=== PATIENT | male | born 1970 | race Caucasian/White ===

== ENCOUNTER 2018-06-28 22:53 | Inpatient (IN) | payer OTHER ==
[~2018-06-28] VITALS: Ht 172.7 cm; Wt 148.3 kg
[2018-06-29] VITALS (11 sets, daily range): BP systolic 111–125; BP diastolic 56–74; PULSE 82–100; RESP 18–20; Ht 172.7 cm; Wt 148.3 kg
[2018-06-29] MEDS ORDERED: LOSA100T15 PO (02:28)
[2018-06-29] MEDS ORDERED: MTF1000T PO (02:28)
[2018-06-29] MEDS ORDERED: HYDR25TA6 PO (02:28)
[2018-06-29] MEDS ORDERED: ATOR-2 PO (02:29)
[2018-06-29] MEDS ORDERED: SOD CHLORIDE 0.9% 1,000 ML IV SCH (06:30)
[2018-06-29] MEDS ORDERED: GUAIFENESIN/CODEINE 5ML CUP PO PRN (06:30)
[2018-06-29] MEDS ORDERED: ACETAMINOPHEN 325 MG TAB PO PRN (06:30)
[2018-06-29] MEDS: CEFTRIAXONE 1 GM/50 ML (PMX) 50 ML IVPB SCH (06:52)
[2018-06-29] MEDS ORDERED: GLUCOSE GEL 15 GRAM TUBE BUCCAL PRN (07:00)
[2018-06-29] MEDS ORDERED: DEXTROSE 50% 50 ML SYRINGE IV PRN ×2 (07:00)
[2018-06-29] MEDS ORDERED: GLUCAGON 1 MG INJ IM PRN (07:00)
[2018-06-29] MEDS ORDERED: GLUCOSE GEL 15 GRAM TUBE PO PRN ×2 (07:00)
[2018-06-29] MEDS: ALBUTEROL/IPRATROPIUM (NEB) 3 ML AMP HHN SCH ×3 (08:00→19:19)
[2018-06-29] MEDS: INSULIN ASPART [NOVOLOG] 3 ML PEN SC SCH ×4 (08:00→20:11)
[2018-06-29] MEDS: AZITHROMYCIN 500MG/NS (PMX) 250 ML IVPB SCH (08:11)
[2018-06-29] MEDS ORDERED: POTASSIUM CHLORIDE (SR) 20 MEQ TAB PO STA ×2 (12:51→13:55)
--- NOTE | 2018-06-29 13:54 | QN ---
Documentation Comment pt seen and examined HEATHER HERNANDEZ MD June 29, 2018 13:54
--- NOTE | 2018-06-29 15:44 | HP ---
DATE OF ADMISSION: 06/29/2018 REASON FOR ADMISSION: Fever, sore throat, headache. HISTORY OF PRESENT ILLNESS: This is a 47-year-old male with a past medical history of diabetes, hype rtension, hyperlipidemia, who presented to [facility] with 8 days of fever, cough, sore throat a nd headache. According to the patient, he has had intermittently fevers for the past few days. He w ent to [facility] twice and he was discharged from the Emergency Department. The patient's brot her had strep pharyngitis and flu and he was in contact with him. About 8 days ago he started having some intermittent fevers, cough, sore throat and a headache. The patient was also having some diarrh ea, 4 to 5 bowel movements per day and went again to [facility] for further evaluation. The pat ieaan has been having poor appetite, has not been able to eat. On arrival there, the patient had a fe debra of 101, pulse was 127. Initial blood pressure 140/90. White count of 10.1, hemoglobin 16.2. So dium 128, potassium 3.5, chloride 88, bicarbonate 23, BUN of 17, creatinine 1.84. Patient had AST 44 , ALT 38. Lactate was 1.9, lipase was 30. Patient had a chest x-ray that showed pneumonia and was g iven Rocephin, dexamethasone, and ketorolac and was transferred due to insurance reasons. PAST MEDICAL HISTORY: 1. Diabetes. 2. Hypertension. 3. Hyperlipidemia. 4. Obesity. ALLERGIES: NONE. PAST SURGICAL HISTORY: Cholecystectomy. HOME MEDICATIONS: 1. Atorvastatin 80. 2. Losartan 100. 3. Hydrochlorothiazide 25. 4. Metformin 1000 b.i.d. SOCIAL HISTORY: Denies any history of smoking, alcohol or any drug use. Lives with family. FAMILY HISTORY: Noncontributory. REVIEW OF SYSTEMS: The patient complained of generalized body aches, cough, sore throat, headache an d coughing. Also, patient was having some diarrhea for the past few days, which has been improving. PHYSICAL EXAMINATION: VITAL SIGNS: Currently initial temperature was 99.5, heart rate of 97, respirations 19, blood pressu re 112/27, saturating 94% on 2 liters. GENERAL: The patient is awake, alert, oriented, does not appear to be in any acute distress. HEENT: Pupils equal, round, reactive to light. NECK: Supple, no JVD. HEART: Regular rate and rhythm. LUNGS: Few rhonchi scattered bilaterally. ABDOMEN: Morbidly obese, positive bowel sounds. EXTREMITIES: No edema. NEUROLOGIC: Nonfocal. LABORATORY DATA: Potassium of 3.3, BUN of 25, creatinine 1.20 from 1.84, calcium 8.2. White count 8 .5, hemoglobin 13.7, platelet count 242. ASSESSMENT AND PLAN: This is a 47-year-old male presenting with: 1. Sepsis, likely secondary to pneumonia. 2. Dehydration. 3. Cough, myalgia, headaches, rule out flu. 4. Hyponatremia, resolved. 5. Acute kidney injury, likely secondary to sepsis, resolved. 6. Diabetes. 7. Hypertension. 8. Hyperlipidemia. PLAN: At this period of time, the patient is admitted to tele. The patient is getting nebs around t he clock. We will continue the patient on Rocephin and azithromycin. We will also send for flu. We will also send for hepatitis studies. We will also send for sputum cultures. Rest of the treatment will depend on the patient's hospitalization course. Dictated By: HEATHER CANALES/CESAR Conf#: [id number] DID#: [id number] CC: AUDELIA BAILEY MD;*End*
[2018-06-29] MEDS: ATORVASTATIN 80 MG TAB PO SCH (20:11)
[2018-06-30] VITALS (11 sets, daily range): BP systolic 115–131; BP diastolic 64–77; PULSE 73–100; RESP 17–20
[2018-06-30] MEDS: ALBUTEROL/IPRATROPIUM (NEB) 3 ML AMP HHN SCH ×4 (01:43→20:58)
[2018-06-30] MEDS: CEFTRIAXONE 1 GM/50 ML (PMX) 50 ML IVPB SCH (06:05)
[2018-06-30] MEDS: AZITHROMYCIN 500MG/NS (PMX) 250 ML IVPB SCH (06:05)
[2018-06-30] MEDS: INSULIN ASPART [NOVOLOG] 3 ML PEN SC SCH ×4 (08:00→21:00)
[2018-06-30] MEDS: FAMOTIDINE 20 MG INJ IV SCH ×2 (08:57→21:09)
[2018-06-30] MEDS ORDERED: POTASSIUM CHLORIDE (SR) 20 MEQ TAB PO STA (09:54)
--- NOTE | 2018-06-30 11:39 | PN ---
Date/Time of Note Date/Time of Note DATE: 06/30/18 TIME: 11:36 Assessment/Plan VTE Prophylaxis Risk score (from [facility])>0 risk: 4 SCD applied (from [facility] [place]): No SCD contraindicated: low risk/ambulating Pharmacological prophylaxis: NA/contraindicated Pharm contraindication: low risk/ambulating Lines/Catheters [facility] Saline Lock Urinary Cath still in place: No Assessment/Plan Assessment/Plan This is a 47-year-old male presenting with: 1. Sepsis, likely secondary to rt pneumonia. 2. Dehydration. 3. Cough, myalgia, headaches, rule out flu. 4. Hyponatremia, resolved. 5. Acute kidney injury, likely secondary to sepsis, resolved. 6. Diabetes. 7. Hypertension. 8. Hyperlipidemia. plan - clinically improved chest x-ray shows right-sided pneumonia - resp culture pen, influenza a and B are negative - c diff neg -PT with nebs/Rocephin/azithromycin -titrate off oxygen - ambulate Result Diagram: 06/29/18 0749 06/30/18 0548 Results 24hrs Laboratory Tests Test 06/29/18 12:10 06/29/18 17:16 06/29/18 20:09 06/30/18 05:48 Bedside Glucose 141 134 151 Sodium Level 140 Potassium Level 3.1 L Chloride Level 102 Carbon Dioxide Level 27 Anion Gap 11 Blood Urea Nitrogen 20 Creatinine 0.96 Est Glomerular > 60 Filtrat Rate mL/min Glucose Level 131 Calcium Level 8.6 Test 06/30/18 07:41 Bedside Glucose 117 Subjective 24 Hr Interval Summary Free Text/Dictation States that he feels 80% better Diarrhea has resolved Exam/Review of Systems Exam Vitals Vital Signs Date Temp Pulse Resp B/P (MAP) Pulse Ox O2 O2 Flow FiO2 Time Delivery Rate 06/30/18 2.0 08:19 06/30/18 92 20 94 Nasal 08:17 Cannula 06/30/18 98.3 117/64 07:14 (81) Intake and Output 06/29/18 06/29/18 06/30/18 1515:00 23:00 07:00 IntakeIntake Total 510 ml 1400 ml 1000 ml BalanceBalance 510 ml 1400 ml 1000 ml Exam ENERAL: The patient is awake, alert, oriented, does not appear to be in any acute distress. HEENT: Pupils equal, round, reactive to light. NECK: Supple, no JVD. HEART: Regular rate and rhythm. LUNGS: coarse Breath sounds on the right base ABDOMEN: Morbidly obese, positive bowel sounds. EXTREMITIES: No edema. NEUROLOGIC: Nonfocal. Results Results 24hrs Laboratory Tests Test 06/29/18 12:10 06/29/18 17:16 06/29/18 20:09 06/30/18 05:48 Bedside Glucose 141 134 151 Sodium Level 140 Potassium Level 3.1 L Chloride Level 102 Carbon Dioxide Level 27 Anion Gap 11 Blood Urea Nitrogen 20 Creatinine 0.96 Est Glomerular > 60 Filtrat Rate mL/min Glucose Level 131 Calcium Level 8.6 Test 06/30/18 07:41 Bedside Glucose 117 Medications Medication Current Medications Famotidine (Pepcid Iv) 20 mg BID IV Last administered on 06/30/18at 08:57; Admin Dose 20 MG; Start 06/30/18 at 09:00 Albuterol/ Ipratropium (Duoneb) 3 ml Q6H RESP THERAPY HHN Last administered on 06/30/18at 08:16; Admin Dose 3 ML; Start 06/29/18 at 08:00 Acetaminophen (Tylenol Tab) 650 mg Q6H PRN PO MILD PAIN(1-3)OR ELEVATED TEMP; Start 06/29/18 at 06:30 Guaifenesin/ Codeine Phosphate (Robitussin Ac Liquid Cup) 10 ml Q4H PRN PO COUGH; Start 06/29/18 at 06:30 Ceftriaxone Sodium 50 ml @ 100 mls/hr Q24H IVPB Last administered on 06/30/18at 06:05; Admin Dose 100 MLS/HR; Start 06/29/18 at 06:30 Insulin Aspart (Novolog Insulin Pen) NOVOLOG *MILD* ALGORITHM WITH MEALS BEDTIME SC Last administered on 06/29/18at 12:13; Admin Dose 1 UNIT; Start 06/29/18 at 08:00 Miscellaneous Information 1 ea NOTE XX ; Start 06/29/18 at 07:00 Glucose (Glutose) 15 gm Q15M PRN PO DECREASED GLUCOSE; Start 06/29/18 at 07:00 Glucose (Glutose) 22.5 gm Q15M PRN PO DECREASED GLUCOSE; Start 06/29/18 at 07:00 Dextrose (D50w Syringe) 25 ml Q15M PRN IV DECREASED GLUCOSE; Start 06/29/18 at 07:00 Dextrose (D50w Syringe) 50 ml Q15M PRN IV DECREASED GLUCOSE; Start 06/29/18 at 07:00 Glucagon (Glucagen) 1 mg Q15M PRN IM DECREASED GLUCOSE; Start 06/29/18 at 07:00 Glucose (Glutose) 15 gm Q15M PRN BUCCAL DECREASED GLUCOSE; Start 06/29/18 at 07:00 Azithromycin 250 ml @ 250 mls/hr Q24H IVPB Last administered on 06/30/18at 06:05; Admin Dose 250 MLS/HR; Start 06/29/18 at 07:00 Atorvastatin Calcium (Lipitor) 80 mg QHS PO Last administered on 06/29/18at 20:11; Admin Dose 80 MG; Start 06/29/18 at 21:00 HEATHER HERNANDEZ MD June 30, 2018 11:39
[2018-06-30] MEDS ORDERED: ENOXAPARIN 40 MG/0.4 ML SYG SC ONE (12:00)
[2018-06-30] MEDS: ATORVASTATIN 80 MG TAB PO SCH (21:07)
[2018-07-01] MEDS: ALBUTEROL/IPRATROPIUM (NEB) 3 ML AMP HHN SCH ×4 (01:15→21:12)
[2018-07-01 02:08] VITALS: BP 122/66; PULSE 89; RESP 18
[2018-07-01] MEDS: CEFTRIAXONE 1 GM/50 ML (PMX) 50 ML IVPB SCH (06:07)
[2018-07-01] MEDS: AZITHROMYCIN 500MG/NS (PMX) 250 ML IVPB SCH (06:30)
[2018-07-01] MEDS: INSULIN ASPART [NOVOLOG] 3 ML PEN SC SCH ×4 (08:00→20:50)
[2018-07-01 08:09] VITALS: BP 129/81; PULSE 85; RESP 18
[2018-07-01] MEDS: FAMOTIDINE 20 MG INJ IV SCH (08:27)
[2018-07-01] MEDS ORDERED: POTASSIUM CHLORIDE (SR) 20 MEQ TAB PO STA (10:03)
--- NOTE | 2018-07-01 14:24 | PN ---
Date/Time of Note Date/Time of Note DATE: 07/01/18 TIME: 14:24 Assessment/Plan VTE Prophylaxis Risk score (from [facility] [place])>0 risk: 2 SCD applied (from [facility] [place]): Yes Pharmacological prophylaxis: NA/contraindicated Pharm contraindication: low risk/ambulating Lines/Catheters [facility] C[facility] Type (from [facility] Saline Lock Urinary Cath still in place: No Assessment/Plan Assessment/Plan his is a 47-year-old male presenting with: 1. Sepsis, likely secondary to rt pneumonia.likley hypoxia 2. Dehydration. 3. Cough, myalgia, headaches, rule out flu. 4. Hyponatremia, resolved. 5. Acute kidney injury, likely secondary to sepsis, resolved. 6. Diabetes. 7. Hypertension. 8. Hyperlipidemia. plan - clinically improved chest x-ray shows right-sided pneumonia - resp culture pen, influenza a and B are negative - cw iv abx rocephin/azithromycin - will get ABG - c diff neg -PT with nebs/Rocephin/azithromycin Result Diagram: 07/01/186 07/01/18 0446 Results 24hrs Laboratory Tests Test 06/30/18 18:03 06/30/18 21:06 07/01/18 04:46 07/01/18 08:26 Bedside Glucose 108 121 100 White Blood Count 8.2 Red Blood Count 4.87 Hemoglobin 13.6 L Hematocrit 41.5 L Mean Corpuscular 85.2 Volume Mean Corpuscular 27.9 L Hemoglobin Mean Corpuscular 32.8 Hemoglobin Concent Red Cell 13.9 Distribution Width Platelet Count 341 # Mean Platelet Volume 10.3 Immature 0.600 H Granulocytes % Neutrophils % Segmented 46 Neutrophils % (Manual) Band Neutrophils % 2 (Manual) Lymphocytes % Lymphocytes % 42 (Manual) Reactive Lymphocytes 3 H % (Manual) Monocytes % Monocytes % (Manual) 7 Eosinophils % Basophils % Nucleated Red Blood 0.0 Cells % Immature 0.050 H Granulocytes # Neutrophils # Neutrophils # 3.8 (Manual) Band Neutrophils # 0.1 Lymphocytes (Manual) 3.4 H Lymphocytes # Reactive Lymphocytes 0.2 H # Monocytes # Monocytes # (Manual) 0.5 Eosinophils # Basophils # Nucleated Red Blood Cells # Platelet Estimate NORMAL Giant Platelets 1 H Poikilocytosis 1+ Anisocytosis 1+ Microcytosis 1+ Sodium Level 145 H Potassium Level 3.0 L Chloride Level 107 Carbon Dioxide Level 28 Anion Gap 10 Blood Urea Nitrogen 16 Creatinine 0.86 Est Glomerular > 60 Filtrat Rate mL/min Glucose Level 101 Calcium Level 9.0 Phosphorus Level 5.6 H Magnesium Level 1.9 Test 07/01/18 12:48 Bedside Glucose 88 Subjective 24 Hr Interval Summary Free Text/Dictation feels a lot better Exam/Review of Systems Exam Vitals Vital Signs Date Temp Pulse Resp B/P (MAP) Pulse Ox O2 O2 Flow FiO2 Time Delivery Rate 07/01/18 77 18 95 21 13:45 07/01/18 98.3 129/81 08:09 (97) 07/01/18 2.0 01:16 07/01/18 Nasal 01:16 Cannula Intake and Output 06/30/18 06/30/18 07/01/18 1515:00 23:00 07:00 IntakeIntake Total 360 ml 480 ml 50 ml BalanceBalance 360 ml 480 ml 50 ml Exam ENERAL: The patient is awake, alert, oriented, does not appear to be in any acute distress. HEENT: Pupils equal, round, reactive to light. NECK: Supple, no JVD. HEART: Regular rate and rhythm. LUNGS: coarse Breath sounds on the right base ABDOMEN: Morbidly obese, positive bowel sounds. EXTREMITIES: No edema. NEUROLOGIC: Nonfocal. Results Results 24hrs Laboratory Tests Test 06/30/18 18:03 06/30/18 21:06 07/01/18 04:46 07/01/18 08:26 Bedside Glucose 108 121 100 White Blood Count 8.2 Red Blood Count 4.87 Hemoglobin 13.6 L Hematocrit 41.5 L Mean Corpuscular 85.2 Volume Mean Corpuscular 27.9 L Hemoglobin Mean Corpuscular 32.8 Hemoglobin Concent Red Cell 13.9 Distribution Width Platelet Count 341 # Mean Platelet Volume 10.3 Immature 0.600 H Granulocytes % Neutrophils % Segmented 46 Neutrophils % (Manual) Band Neutrophils % 2 (Manual) Lymphocytes % Lymphocytes % 42 (Manual) Reactive Lymphocytes 3 H % (Manual) Monocytes % Monocytes % (Manual) 7 Eosinophils % Basophils % Nucleated Red Blood 0.0 Cells % Immature 0.050 H Granulocytes # Neutrophils # Neutrophils # 3.8 (Manual) Band Neutrophils # 0.1 Lymphocytes (Manual) 3.4 H Lymphocytes # Reactive Lymphocytes 0.2 H # Monocytes # Monocytes # (Manual) 0.5 Eosinophils # Basophils # Nucleated Red Blood Cells # Platelet Estimate NORMAL Giant Platelets 1 H Poikilocytosis 1+ Anisocytosis 1+ Microcytosis 1+ Sodium Level 145 H Potassium Level 3.0 L Chloride Level 107 Carbon Dioxide Level 28 Anion Gap 10 Blood Urea Nitrogen 16 Creatinine 0.86 Est Glomerular > 60 Filtrat Rate mL/min Glucose Level 101 Calcium Level 9.0 Phosphorus Level 5.6 H Magnesium Level 1.9 Test 07/01/18 12:48 Bedside Glucose 88 Medications Medication Current Medications Albuterol/ Ipratropium (Duoneb) 3 ml Q6H RESP THERAPY HHN Last administered on 07/01/18at 13:44; Admin Dose 3 ML; Start 06/29/18 at 08:00 Acetaminophen (Tylenol Tab) 650 mg Q6H PRN PO MILD PAIN(1-3)OR ELEVATED TEMP; Start 06/29/18 at 06:30 Guaifenesin/ Codeine Phosphate (Robitussin Ac Liquid Cup) 10 ml Q4H PRN PO COUGH; Start 06/29/18 at 06:30 Ceftriaxone Sodium 50 ml @ 100 mls/hr Q24H IVPB Last administered on 07/01/18at 06:07; Admin Dose 100 MLS/HR; Start 06/29/18 at 06:30 Insulin Aspart (Novolog Insulin Pen) NOVOLOG *MILD* ALGORITHM WITH MEALS BEDTIME SC Last administered on 06/29/18at 12:13; Admin Dose 1 UNIT; Start 06/29/18 at 08:00 Miscellaneous Information 1 ea NOTE XX ; Start 06/29/18 at 07:00 Glucose (Glutose) 15 gm Q15M PRN PO DECREASED GLUCOSE; Start 06/29/18 at 07:00 Glucose (Glutose) 22.5 gm Q15M PRN PO DECREASED GLUCOSE; Start 06/29/18 at 07:00 Dextrose (D50w Syringe) 25 ml Q15M PRN IV DECREASED GLUCOSE; Start 06/29/18 at 07:00 Dextrose (D50w Syringe) 50 ml Q15M PRN IV DECREASED GLUCOSE; Start 06/29/18 at 07:00 Glucagon (Glucagen) 1 mg Q15M PRN IM DECREASED GLUCOSE; Start 06/29/18 at 07:00 Glucose (Glutose) 15 gm Q15M PRN BUCCAL DECREASED GLUCOSE; Start 06/29/18 at 07:00 Azithromycin 250 ml @ 250 mls/hr Q24H IVPB Last administered on 07/01/18at 06:30; Admin Dose 250 MLS/HR; Start 06/29/18 at 07:00 Atorvastatin Calcium (Lipitor) 80 mg QHS PO Last administered on 06/30/18at 21:07; Admin Dose 80 MG; Start 06/29/18 at 21:00 Famotidine (Pepcid) 20 mg BID PO ; Start 07/01/18 at 21:00 HEATHER HERNANDEZ MD July 01, 2018 14:24
--- NOTE | 2018-07-01 14:26 | PDOCDIS ---
Discharge Instructions DIAGNOSIS Discharge Diagnosis pneumonia CONDITION [id number] Patient Condition: [id number] Fair HOME CARE INSTRUCTIONS: [id number] Diet Instructions: [id number] Low Fat /Cholesterol [id number] Special Diet: [id number] carb controlled ACTIVITY: [id number] Activity Restrictions: [id number] Slowly Increase Activity Rest between Activity Avoid heavy lifting FOLLOW UP/APPOINTMENTS Follow-up Plan fu PCP in 1-2 weeks avoid sick contacts return to ER if has cp/sob/fevers HEATHER HERNANDEZ MD July 01, 2018 14:26
[2018-07-01] MEDS ORDERED: ALBU8.5H8 INH (14:29)
[2018-07-01] MEDS ORDERED: LEVO750T25 PO (14:29)
[2018-07-01] MEDS ORDERED: CODE5LIQ2 PO (14:29)
[2018-07-01 14:50] VITALS: BP 125/75; PULSE 93; RESP 17
--- NOTE | 2018-07-01 17:27 | QN ---
Documentation Comment As Physician Advisor I have reviewed the chart and have determined that as of today, this patient continues to receive medically necessary care required for the diagnosis and treatment of illness or injury. There has been no unreasonable delay in the rendering of medically necessary services, and medically necessary care has required a length of stay greater than two midnights. Additional information gained during the stay now suggests this patient should have been classified as an inpatient at the time of admission, and the admission status has been changed the status to inpatient to reflect that medical judgment. Specific information with regard to this patient that contributed to this decision includes: Sepsis STAR IV antibiotics O2 requirement Please call me at [phone] with questions. JOY KRUEGER MD July 01, 2018 17:27
[2018-07-01 19:52] VITALS: BP 140/87; PULSE 93; RESP 18
[2018-07-01] MEDS: ATORVASTATIN 80 MG TAB PO SCH (20:50)
[2018-07-01] MEDS: FAMOTIDINE 20 MG TAB PO SCH (20:51)
[2018-07-02] MEDS: ALBUTEROL/IPRATROPIUM (NEB) 3 ML AMP HHN SCH ×3 (01:29→14:11)
[2018-07-02 02:38] VITALS: BP 121/62; PULSE 88; RESP 18
[2018-07-02] MEDS: CEFTRIAXONE 1 GM/50 ML (PMX) 50 ML IVPB SCH (06:02)
[2018-07-02] MEDS: AZITHROMYCIN 500MG/NS (PMX) 250 ML IVPB SCH (06:36)
[2018-07-02 07:35] VITALS: BP 122/83; PULSE 79; RESP 18
[2018-07-02] MEDS: INSULIN ASPART [NOVOLOG] 3 ML PEN SC SCH ×2 (08:00→12:00)
[2018-07-02] MEDS: FAMOTIDINE 20 MG TAB PO SCH (09:11)
[2018-07-02 13:39] VITALS: BP 130/74; PULSE 95; RESP 18
--- NOTE | 2018-07-02 15:12 | DS ---
Date/Time of Note Date/Time of Note DATE: 07/02/18 TIME: 15:12 Discharge Summary Admission/Discharge Info Admit Date/Time July 01, 2018 at 11:14 Discharge Date/Time Discharge Diagnosis pneumonia Patient Condition: Stable Hospital Course This is a 47-year-old male with a past medical history of diabetes, hypertension, hyperlipidemia, who presented to [facility] with 8 days of fever, cough, sore throat and headache. According to the patient, he has had intermittently fevers for the past few days. He went to [facility] twice and he was discharged from the Emergency Department. The patient's brother had strep pharyngitis and flu and he was in contact with him. About 8 days ago he started having some intermittent fevers, cough, sore throat and a headache. The patient was also having some diarrhea, 4 to 5 bowel movements per day and went again to [facility] for further evaluation. The patient has been having poor appetite, has not been able to eat. On arrival there, the patient had a fever of 101, pulse was 127. Initial blood pressure 140/90. White count of 10.1, hemoglobin 16.2. Sodium 128, potassium 3.5, chloride 88, bicarbonate 23, BUN of 17, creatinine 1.84. Patient had AST 44, ALT 38. Lactate was 1.9, lipase was 30. Patient had a chest x-ray that showed pneumonia and was given Rocephin, dexamethasone, and ketorolac and was transferred due to insurance reasons. PAST MEDICAL HISTORY: 1. Diabetes. 2. Hypertension. 3. Hyperlipidemia. 4. Obesity. ALLERGIES: NONE. PAST SURGICAL HISTORY: Cholecystectomy. HOME MEDICATIONS: 1. Atorvastatin 80. 2. Losartan 100. 3. Hydrochlorothiazide 25. 4. Metformin 1000 b.i.d. Diagnosis: 1. Sepsis, likely secondary to rt lobe pneumonia. Acute respiratory failure, hypoxia. chest x-ray shows right-sided pneumonia 2. Dehydration, resolved. 3. Cough, myalgia, headaches, negative flu. 4. Hyponatremia, resolved. 5. Acute kidney injury, likely secondary to sepsis, resolved. 6. Diabetes mellitus type II. 7. Hypertension. 8. Hyperlipidemia. 9. Morbid obesity During hospitalization patient clinically improved. His resp culture showed normal aly, influenza a and B are negative. During hospitalization we continued patient with iv abx rocephin/azithromycin. He had dilatory treatment with albuterol and ipratropium bromide. He was ambulating. on July 01, 2018 ABG showed a low amount of oxygen po2 was 54. On the next day will get an ABG in the PO2 is 60, improved. Pt is not dependent on supplemental oxygen, he is independent walking, has shower, denied SOB. Home Meds Active Scripts Albuterol Sulfate* (Proair HFA*) 8.5 Gm Hfa.aer.ad, 2 PUFF INH Q4 PRN for SHORTNESS OF BREATH, #1 INHALER Prov:HEATHER HERNANDEZ MD 07/01/18 Levofloxacin* (Levaquin*) 750 Mg Tablet, 750 MG PO DAILY for 7 Days, TAB Prov:HEATHER HERNANDEZ MD 07/01/18 Guaifenesin-Codeine Phosphate* (Robitussin* AC) 5 Ml Syrup, 10 ML PO Q4H PRN for COUGH for 7 Days Prov:HEATHER HERNANDEZ MD 07/01/18 Reported Medications Atorvastatin* (Atorvastatin*) 80 Mg Tablet, 80 MG PO QHS, #30 TAB 06/29/18 Losartan Potassium* (Losartan Potassium*) 100 Mg Tablet, 100 MG PO DAILY, TAB 06/29/18 Hydrochlorothiazide* (Hydrochlorothiazide*) 25 Mg Tab, 25 MG PO DAILY, #30 TAB 06/29/18 Metformin* (Glucophage*) 1,000 Mg Tablet, 1000 MG PO BID, #60 TAB 06/29/18 Follow-up Plan fu PCP in 1-2 weeks avoid sick contacts return to ER if has cp/sob/fevers Primary Care Provider Care Physician No Primary Time spent on discharge: < 30 minutes Pending Labs Laboratory Tests Test 07/01/18 17:41 07/01/18 20:49 07/02/18 08:13 07/02/18 13:09 Bedside 94 121 100 109 Glucose mg/dL (70-220) mg/dL (70-220) mg/dL (70-220) mg/dL (70-220) SKYLER MCKEON July 02, 2018 15:12
--- NOTE | 2018-07-02 15:14 | PN ---
Date/Time of Note Date/Time of Note DATE: 07/02/18 TIME: 15:13 Assessment/Plan VTE Prophylaxis Risk score (from [facility] [place])>0 risk: 2 SCD applied (from [facility] [place]): No SCD contraindicated: low risk/ambulating Pharmacological prophylaxis: NA/contraindicated Pharm contraindication: low risk/ambulating Lines/Catheters IV Catheter Type (from [facility]): Saline Lock Urinary Cath still in place: No Assessment/Plan Hospital Course 1. Sepsis, likely secondary to rt lobe pneumonia.Acute respiratory failure, hypoxia 2. Dehydration, resolved. 3. Cough, myalgia, headaches, negative flu. 4. Hyponatremia, resolved. 5. Acute kidney injury, likely secondary to sepsis, resolved. 6. Diabetes mellitus type II. 7. Hypertension. 8. Hyperlipidemia. 9. Morbid obesity Assessment/Plan - clinically improved chest x-ray shows right-sided pneumonia - resp culture normal aly, influenza a and B are negative - cw iv abx rocephin/azithromycin - will get ABG , pO2 is 60, improved -pt is still dependent on supplemental oxygen - c diff neg -PT with nebs/Rocephin/azithromycin GI proph. famot. Result Diagram: 07/01/18 0446 07/01/18 0446 Results 24hrs Laboratory Tests Test 07/01/18 17:41 07/01/18 20:49 07/02/18 08:13 07/02/18 13:09 Bedside Glucose 94 121 100 109 Subjective 24 Hr Interval Summary Constitutional: no complaints, improved Exam/Review of Systems Exam Vitals Vital Signs Date Temp Pulse Resp B/P (MAP) Pulse Ox O2 O2 Flow FiO2 Time Delivery Rate 07/02/18 93 21 14:19 07/02/18 98.8 95 18 130/74 13:39 (92) 07/02/18 2.0 10:22 07/02/18 Nasal 10:21 Cannula Intake and Output 07/01/18 07/01/18 07/02/18 1515:00 23:00 07:00 IntakeIntake Total 1210 ml 700 ml 850 ml BalanceBalance 1210 ml 700 ml 850 ml Constitutional: alert, oriented Neck: supple Respiratory: diminished breath sounds Cardiovascular: regular rate and rhythm Gastrointestinal: soft Extremities: edema; No normal pulses, No calf tenderness, No cyanosis, No clubbing, No pitting pedal edema, No palpable cord, No tenderness, No other Results Results 24hrs Laboratory Tests Test 07/01/18 17:41 07/01/18 20:49 07/02/18 08:13 07/02/18 13:09 Bedside Glucose 94 121 100 109 Medications Medication Current Medications Albuterol/ Ipratropium (Duoneb) 3 ml Q6H RESP THERAPY HHN Last administered on 07/02/18at 14:11; Admin Dose 3 ML; Start 06/29/18 at 08:00 Acetaminophen (Tylenol Tab) 650 mg Q6H PRN PO MILD PAIN(1-3)OR ELEVATED TEMP; Start 06/29/18 at 06:30 Guaifenesin/ Codeine Phosphate (Robitussin Ac Liquid Cup) 10 ml Q4H PRN PO COUGH; Start 06/29/18 at 06:30 Ceftriaxone Sodium 50 ml @ 100 mls/hr Q24H IVPB Last administered on 07/02/18at 06:02; Admin Dose 100 MLS/HR; Start 06/29/18 at 06:30 Insulin Aspart (Novolog Insulin Pen) NOVOLOG *MILD* ALGORITHM WITH MEALS BEDTIME SC Last administered on 06/29/18at 12:13; Admin Dose 1 UNIT; Start 06/29/18 at 08:00 Miscellaneous Information 1 ea NOTE XX ; Start 06/29/18 at 07:00 Glucose (Glutose) 15 gm Q15M PRN PO DECREASED GLUCOSE; Start 06/29/18 at 07:00 Glucose (Glutose) 22.5 gm Q15M PRN PO DECREASED GLUCOSE; Start 06/29/18 at 07:00 Dextrose (D50w Syringe) 25 ml Q15M PRN IV DECREASED GLUCOSE; Start 06/29/18 at 07:00 Dextrose (D50w Syringe) 50 ml Q15M PRN IV DECREASED GLUCOSE; Start 06/29/18 at 07:00 Glucagon (Glucagen) 1 mg Q15M PRN IM DECREASED GLUCOSE; Start 06/29/18 at 07:00 Glucose (Glutose) 15 gm Q15M PRN BUCCAL DECREASED GLUCOSE; Start 06/29/18 at 07:00 Azithromycin 250 ml @ 250 mls/hr Q24H IVPB Last administered on 07/02/18at 06:36; Admin Dose 250 MLS/HR; Start 06/29/18 at 07:00 Atorvastatin Calcium (Lipitor) 80 mg QHS PO Last administered on 07/01/18at 20:50; Admin Dose 80 MG; Start 06/29/18 at 21:00 Famotidine (Pepcid) 20 mg BID PO Last administered on 07/02/18at 09:11; Admin Dose 20 MG; Start 07/01/18 at 21:00 SKYLER MCKEON July 02, 2018 15:14
[2018-07-02] MEDS ORDERED: POTASSIUM CHLORIDE 20 MEQ POWDER FOR ORAL SOLN PO ONE (15:30)
[2018-07-03] MEDS ORDERED: AZITHROMYCIN 500 MG TAB PO SCH (07:00)
== END 2018-07-02 17:55 | disposition home or self-care (01) | DRG 871 ==
LOC: 6WM 06-29 01:38 → INTOOBSV 06-29 01:38 → 6WM 06-29 01:56 → 2NE 06-30 15:49 → OBSVTOIN 07-01 11:14
PROVIDERS: ADMIT Internal Medicine Nephrology; ATTEND Internal Medicine Nephrology
DX: A41.9 Sepsis, unspecified organism (principal); J18.9 Pneumonia, unspecified organism; E87.1 Hypo-osmolality and hyponatremia; N17.9 Acute kidney failure, unspecified; E86.0 Dehydration; E11.9 Type 2 diabetes mellitus without complications; I10 Essential (primary) hypertension; E78.5 Hyperlipidemia, unspecified
CPT/HCPCS: 36600; 71045; 80048; 82803; 82962; 83735; 84100; 85025; 87070; 87075; 87081; 87400; 94640; 94760; 99217; G0378; J0456; J0696; J1650; J1815; J7030